=== PATIENT | male | born 1960 | race Caucasian/White ===

== ENCOUNTER 2016-09-17 17:12 | Emergency (ER) | payer OTHER ==
[~2016-09-17] VITALS: Ht 180.3 cm; Wt 91.6 kg
[~2016-09-17 17:12] MED LIST: BACTRIM DS 8001 TAB PO; KEFLEX500 MG PO
--- NOTE | 2016-09-17 18:53 | ED UPPER/LOWER EXTREMITY COMPL ---
History of Present Illness General Chief Complaint: Lower Extremity Problems Stated Complaint: L KNEE PAIN,SWELLING AND REDDENED Source: patient, old records Exam Limitations: no limitations Vital Signs & Intake/Output Vital Signs & Intake/Output Vital Signs Date Time Temp Pulse Resp B/P B/P Pulse O2 O2 Flow FiO2 Mean Ox Delivery Rate 09/17 1901 98.1 88 22 155/90 97 Allergies Coded Allergies: NO KNOWN ALLERGIES (10/14/14) Reconcile Medications Cephalexin (Keflex) 500 MG CAPSULE 1 TAB PO 4 TIMES/DAY CELLULITIS Cephalexin (Keflex) 500 MG CAPSULE 1 CAP PO TID cellulitis Sulfamethoxazole/Trimethopri (Bactrim Ds 800 MG-160 MG) 1 TAB TAB 1 TAB PO BID CELLULITIS Sulfamethoxazole/Trimethoprim (Bactrim Ds Tablet) 800 MG-160 MG TABLET 1 TAB PO BID cellulitis Triage Nurses Notes Reviewed? yes Onset: Abrupt Duration: day(s): (2), constant Timing: recent history Severity: mild, moderate Severity Numbers: 4 Pain/Injury Location: Left: Leg, Knee. Method of Injury: unknown No Modifying Factors: none Associated Symptoms: swelling, redness HPI: 56-year-old male with history of hypertension and high cholesterol cellulitis presents to ER complaining of a 2 day history of left knee redness warmth and swelling. He denies any known injury or trauma however states that he is on his knees a lot at work. He denies any difficulty with range of motion of his knees. He states he had history of similar symptoms in the past diagnosed with cellulitis and was placed on antibiotics which resolved the symptoms. He has never required admission. No fever no chills no night sweats weight loss. He denies any calf pain or swelling no chest pain shortness of breath or no recent tick or insect bites no trauma to the leg no recent immobility or travel (ELTON KERR,TIFFANIE) Past History Travel History Traveled to [place] past 21 day No Medical History Any Pertinent Medical History? 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 No (TIFFANIE POLLOCK) Review of Systems Review of Systems Constitutional: Reports: see HPI. All Other Systems: Reviewed and Negative Comments Review of systems: See HPI, All other systems negative. Constitutional, no chills no fever, no malaise HEENT: No visual changes no sore throat no congestion, no ear pain Cardiovascular: No chest pain , no palpitation , no orthopnea Skin: See HPI Respiratory: No dyspnea no cough no sputum no hemoptysis GI: No nausea no vomiting, no diarrhea, no bloating/constipation : No dysuria No hematuria, no frequency, no discharge Muscle skeletal: No joint pain, no joint swelling, no back pain, no neck pain, Neurologic: No numbness no confusion, no headache Psych: No stress Heme/endocrine: No bruising Immunology: No lymphadenopathy (TIFFANIE POLLOCK) Physical Exam Physical Exam General Appearance: well developed/nourished, no apparent distress, alert, awake , comfortable Comments: Well-developed well-nourished patient in no apparent distress. HEENT: Atraumatic, extraocular motion intact Neck: Supple, FROM Back: FROM Cardiovascular: Regular rate and rhythms no murmurs rubs or gallops, Respiratory: Chest nontender.There were no bony deformities, no asymmetry. No respiratory distress. Patient speaking in full complete sentences. Breath sounds clear to auscultation bilaterally: NO W/R/R Hip/Pelvis: Atraumatic/Stable. FROM. Knee: Atraumatic/stable. FROM. No joint swelling, no effusion. No laxity. Negative ana paula/anterior drawer test. No pain with ROM Leg: Mild erythema over the proximal medial lower leg radiating up into the knee , no streaking up the skin. No edema, 5 out of 5 strength in the lower extremity, normal dorsiflexion of great toe bilaterally, gross sensation is intact, patellar tendon reflex 2+ bilaterally. Ankle/Foot: Atraumatic/stable. Skin intact. FROM. No swelling, no effusion. No laxity on exam Pulses: Normal/equal DP/PT pulses bilaterally. Brisk cap refill Neuro: awake, alert, and oriented to person, place and time. There were no obvious focal neurologic abnormalities. Skin: Warm & dry;No appreciable rash on exposed skin Psych: Mood affect normal, normal memory normal judgment. (TIFFANIE POLLOCK) Progress Differential Diagnosis: cellulitis, gout, septic arthritis, sprain, tendon injury, BURSITIS Plan of Care: Patient clinically appears well and nontoxic appearing afebrile he's had similar symptoms in the past consistent with cellulitis. I discussed with the patient at length all of their results. I had an extensive conversation regarding need for close follow up with their primary care physician this week as well as return precautions. I answered all of their questions, they feel comfortable with the plan and follow-up care. I discussed with the patient/family the medications that they will receive. I gave them signs and symptoms that could indicate an adverse reaction. I have advised them to limit their activities until they can see how they respond to the medication. (TIFFANIE POLLOCK) Departure Departure Time of Disposition: 1858 Disposition: HOME OR SELF CARE Condition: Stable Clinical Impression Primary Impression: Cellulitis Referrals: ANAM CANTRELL MD (PCP/Family) Additional Instructions: keflex and bactrim as directed. keep leg elevated, ice packs, follow up with your pmd or return to the ER on monday for wound check. return at anytime sooner ifyou develop streaking up the skin, fever,chills,night sweats or worsening rash. these were sent to [facility] Departure Forms: Customer Survey General Discharge Information Prescriptions: Current Visit Scripts Sulfamethoxazole/Trimethoprim (Bactrim Ds Tablet) 1 TAB PO BID #14 TAB Cephalexin (Keflex) 1 CAP PO TID #21 CAP (TIFFANIE POLLOCK) PA/RESORT DESK CLERK Co-Sign Statement Statement: ED Attending supervision documentation- [] I saw and evaluated the patient. I have also reviewed all the pertinent lab results and diagnostic results. I agree with the findings and the plan of care as documented in the PA's/RESORT DESK CLERK's documentation. [X] I have reviewed the ED Record and agree with the PA's/RESORT DESK CLERK's documentation. [] Additions or exceptions (if any) to the PAs/RESORT DESK CLERK's note and plan are summarized below: [] (NORBERTO HUDSON,NEGRITA Sanford)
[2016-09-17 19:02] VITALS: BP 155/90
[2016-09-17] MEDS ORDERED: KEFLEX500 M1 PO (19:02)
[2016-09-17] MEDS ORDERED: BACTRIM DS TAB1 EACH PO (19:02)
== END 2016-09-17 19:06 ==
LOC: ERH 17:12
DX: L03.116 Cellulitis of left lower limb (principal)